=== PATIENT | female | born 1965 | race Hispanic/Latino ===

== ENCOUNTER 2023-05-30 15:35 | Emergency (ER) | payer OTHER, MEDICARE ==
[~2023-05-30] VITALS: Ht 160 cm; Wt 90.7 kg
[2023-05-30] MEDS ORDERED: SOLU-MEDROL 125MG VIAL IVP ONE (16:00)
[2023-05-30] MEDS ORDERED: FAMOTIDINE 20MG VIAL IV ONE (16:00)
[2023-05-30 16:18] LABS: BASOPHILS # (AUTO) 0.02 K/uL (0.00-0.20); BASOPHILS % (AUTO) 0.3 % (0.0-5.0); EOSINOPHILS # (AUTO) 0.02 K/uL (0.00-0.70); EOSINOPHILS % (AUTO) 0.3 % (0.0-8.0); HEMATOCRIT 43.1 % (36-48); IMMATURE GRANULOCYTE ABSOLUTE 0.03 K/uL (0-1); LYMPHOCYTES # (AUTO) 1.5 K/uL (1.0-4.8); LYMPHOCYTES % (AUTO) 23.7 % (21.0-51.0); MEAN CORPUSCULAR HEMOGLOBIN 29.4 pg (27.0-33.0); MEAN CORPUSCULAR HGB CONC 35.3 g/dL (32.0-36.0); MEAN CORPUSCULAR VOLUME 83.4 fL (79-99); MONOCYTES # (AUTO) 0.5 K/uL (0.1-1.0); MONOCYTES % (AUTO) 8.6 % (3.0-13.0); NEUTROPHILS # (AUTO) 4.1 K/uL (1.8-7.7); NEUTROPHILS % (AUTO) 66.6 % (40.0-77.0); PLATELET COUNT (AUTO) 89 K/uL (130-400); RED BLOOD CELL COUNT(AUTO) 5.17 MIL/uL (4.00-5.50); RED CELL DISTRIBUTION WIDTH 13.6 % (11.0-15.5); WHITE BLOOD COUNT (AUTO) 6.2 K/uL (4.8-10.8)
[2023-05-30 16:31] LABS: ALBUMIN 3.2 g/dL (3.5-5.0); CREATININE 1.1 mg/dL (0.5-1.5); POTASSIUM 3.2 mmol/L (3.5-5.1); TOTAL PROTEIN, SERUM 7.6 g/dL (6.0-8.3)
[2023-05-30] MEDS ORDERED: 0.9%NACL 1000ML 1,000 ML IV ONE ×2 (17:00→19:00)
[2023-05-30] MEDS ORDERED: INSULIN HUMULIN R 100 UNIT/ML 3ML IV ONE ×2 (17:00→19:00)
[2023-05-30] MEDS ORDERED: PRED20TA3 PO (19:10)
[2023-05-30] MEDS ORDERED: EPIN0.3P2 IM (19:10)
[2023-05-30] MEDS ORDERED: KCL 20 MEQ ERTAB PO ONE (19:30)
[2023-05-30 19:40] VITALS: BP 135/68; PULSE 85; RESP 18; O2SAT 97
== END 2023-05-30 19:43 | disposition home or self-care (01) ==
LOC: EDH 15:35
DX: T63.441A Toxic effect of venom of bees, accidental (unintentional), initial encounter (principal); E11.65 Type 2 diabetes mellitus with hyperglycemia; Z88.5 Allergy status to narcotic agent; Z88.8 Allergy status to other drugs, medicaments and biological substances; Z90.49 Acquired absence of other specified parts of digestive tract; Z91.030 Bee allergy status
CPT/HCPCS: 99284; 96374; 96361; 96375; 80053; 85025; 82948; 36415; 96376; J1815 ×2; J3490; J7030 ×2; J2930